=== PATIENT | male | born 1960 | race Caucasian/White ===

== ENCOUNTER 2018-12-11 06:33 | Day surgery (SDC) | payer BC ==
[~2018-12-11] VITALS: Ht 182.9 cm; Wt 120.4 kg
[2018-12-11] VITALS (8 sets, daily range): BP systolic 114–133; BP diastolic 64–85; PULSE 67–72; TEMP 98.2–98.4
[~2018-12-11 06:33] MED LIST: MOTRIN 600600 MG/TAB PO; TYLENOL 500MG500 MG PO
--- NOTE | 2018-12-11 09:30 | NUR ---
Resting and watches TV.
[2018-12-11] MEDS ORDERED: SYNTHROID0.125 MG/T PO (10:35)
[2018-12-11] MEDS ORDERED: PERCOCET 325 MG1 TA2 PO (13:12)
--- NOTE | 2018-12-11 13:45 | NUR ---
Patient returns to room 3 per cart from PACU and is awake and alert. Dressing clean and dry on the right axilla area and the right elbow area. IV fluids infusing and patient denies pain or nausea. Allowed to rest. Sipping on water and Sprite.
--- NOTE | 2018-12-11 14:00 | NUR ---
Room air sats 96%. Resting and sipping on water and Sprite.
--- NOTE | 2018-12-11 14:15 | NUR ---
Room air sats 92%. Continues to deny pain or nausea.
--- NOTE | 2018-12-11 14:30 | NUR ---
Eating toast. Continues to deny pain or nausea.
--- NOTE | 2018-12-11 14:45 | NUR ---
Resting and denies need for pain medication or nausea.
--- NOTE | 2018-12-11 15:15 | NUR ---
Assisted up to the bathroom and is able to void. Returns to room and dresses self. Dressing remains dry on the right axilla and right elbow area. Continues to deny need for pain medication. Tolerated toast and Sprite.
--- NOTE | 2018-12-11 15:35 | NUR ---
Given dismissal instructions and voices understanding of these. Provided script for Percocet and instructed to take pain medication with food and to avoid constipation with over the counter laxatives. IV discontinued and site is free of redness. Patient is dressed and ready for discharge.
--- NOTE | 2018-12-11 15:41 | NUR ---
Patient dismissed to home per private vehicle driven by spouse with instructions in hand. Taken to the front door per wheelchair by RN and assisted into vehicle.
== END 2018-12-11 15:41 | disposition home or self-care (01) ==
LOC: SDCO 06:33
DX: D22.61 Melanocytic nevi of right upper limb, including shoulder (principal); Z82.49 Family history of ischemic heart disease and other diseases of the circulatory system; Z80.8 Family history of malignant neoplasm of other organs or systems
CPT/HCPCS: A9541; J0690; J1100; J1885; J2250; J2405; J2704; J2795; J3010; J7120

== ENCOUNTER 2019-12-30 08:05 | Inpatient (IN) | payer BC ==
[2019-12-30] VITALS (672 sets, daily range): BP systolic 112–154; BP diastolic 66–107; PULSE 70–135; TEMP 97.5–98; O2SAT 82–100
[~2019-12-30] VITALS: Ht 182.9 cm; Wt 118.0 kg
[~2019-12-30 08:05] MED LIST changes: +PERCOCET 325 MG1 TA2 PO; +SYNTHROID0.125 MG/T PO
[2019-12-30] MEDS ORDERED: ELIQUIS 5MG PO (08:40)
[2019-12-30] MEDS ORDERED: TOPROL XL 50MG50 MG PO (08:41)
[2019-12-30] MEDS ORDERED: LIPITOR 10MG10 MG PO (08:41)
[2019-12-30 09:22] LABS: HEMATOCRIT 47.9 % (42.0-52.0); HEMOGLOBIN 16.5 g/dl (13.5-18.0); MEAN CELL VOLUME 89 fl (80.0-100.0); MEAN CORPUSCULAR HEMOGLOBIN 31 pg (27.0-31.0); MEAN CORPUSCULAR HGB CONC 34 g/dl (33.0-37.0); MEAN PLATELET VOLUME 9.4 fl (7.4-10.4); PLATELET COUNT 277 K/mm3 (130-400); RED BLOOD COUNT 5.41 M/mm3 (4.20-5.60); REDCELL DISTRIBUTION WIDTH-CV 11.6 % (11.5-14.5)
[2019-12-30 09:34] LABS: CALCIUM 8.9 mg/dL (8.4-10.2); CREATININE, serum 0.99 (0.66-1.25); POTASSIUM 4.3 mmol/L (3.4-5.0)
[2019-12-30 09:50] LABS: INR 1.2 (0.8-3.0); PROTHROMBIN TIME 13.6 SECONDS (9.7-12.8)
[2019-12-30 10:05] LABS: THYROID STIMULATING HORMONE 1.86 uIU/mL (0.465-4.680)
[2019-12-30 12:24] LABS: PARTIAL THROMBOPLASTIN TIME 40.8 SECONDS (26.0-37.0)
--- NOTE | 2019-12-30 19:00 | NUR ---
RECEIVED PT WITH HEPARIN INFUSING AT 2300 UNITS/HR OR 23 ML/HR.
--- NOTE | 2019-12-30 19:19 | NUR ---
report received from BONI Kang.
[2019-12-31] VITALS (1026 sets, daily range): BP systolic 100–128; BP diastolic 64–105; PULSE 17–77; TEMP 97.4–98.1; O2SAT 79–100
--- NOTE | 2019-12-31 00:51 | NUR ---
PT'S QTC AT 496, DR. NEWTON NOTIFIED AND ORDERED TIKOSYN TO BE REDUCED AT 250 MCG IN THE MORNING. ORDER CHANGED IN EMAR.
--- NOTE | 2019-12-31 07:15 | NUR ---
REPORT GIVEN TO BONI KRAMER.
[2019-12-31 07:55] LABS: BASO # 0.1 (0.0-0.2); BASO % 0.7 % (0.0-2.0); EOS # 0.2 (0.0-0.7); EOS % 2.4 % (0-4.0); GRAN # 3.4 (1.4-6.5); GRAN % 49.1 % (42.2-75.2); HEMATOCRIT 45.4 % (42.0-52.0); HEMOGLOBIN 15.4 g/dl (13.5-18.0); LYMPH # 2.5 (1.2-3.4); LYMPH % 36.5 % (20.0-51.0); MEAN CELL VOLUME 90 fl (80.0-100.0); MEAN CORPUSCULAR HEMOGLOBIN 31 pg (27.0-31.0); MEAN CORPUSCULAR HGB CONC 34 g/dl (33.0-37.0); MEAN PLATELET VOLUME 9.8 fl (7.4-10.4); MONO # 0.8 (0.1-0.6); MONO % 10.9 % (1.7-9.3); PLATELET COUNT 238 K/mm3 (130-400); RED BLOOD COUNT 5.05 M/mm3 (4.20-5.60); REDCELL DISTRIBUTION WIDTH-CV 11.7 % (11.5-14.5)
[2019-12-31 07:59] LABS: CALCIUM 8.5 mg/dL (8.4-10.2); CREATININE, serum 0.89 (0.66-1.25); MAGNESIUM 2.1 mg/dL (1.6-2.3); POTASSIUM 4.2 mmol/L (3.4-5.0)
--- NOTE | 2019-12-31 15:51 | NUR ---
Digital Associate met with the patient to complete initial intake. The patient lives alone in [place]. The patient denies DME use and is independent with ADLs. The patient's PCP is Dr. Baker and patient receives medications from [facility] with no difficulties. The patient does not have advanced directives in the EMR. The patient was interested in DPOA-HC form. Form provided. The patient is not but has a life partner, Jennifer Talavera ([phone]). He states he will designate Jennifer once he fills out the DPOA-HC paperwork, they have been together 13 years. The patient does have adult children. He did not provide their names. The patient plans to return home at discharge. There are no additional needs at this time.
--- NOTE | 2019-12-31 16:42 | NUR ---
Per Dr. Bridges current 250mcg of Tikosyn is to be continued.
[2019-12-31 18:11] LABS: INR 1.1 (0.8-3.0); PROTHROMBIN TIME 11.8 SECONDS (9.7-12.8)
[2020-01-01] VITALS (1200 sets, daily range): BP systolic 93–146; BP diastolic 72–100; PULSE 72–128; TEMP 97.5–98.4; O2SAT 86–100
--- NOTE | 2020-01-01 03:10 | NUR ---
PT'S HR JUST SUDDENLY JUMP T0 120-130'S. 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 I WOKE HIM UP AND HE VERBALIZED HE FEELS OKAY. EKG ORDERED. WHILE DOING EKG, PT FELT MILD CHEST TIGHTNESS IN LEFT SIDE AND STARTED SHIVERING. EKG SHOWED AFIB RVR WITH ABERRANCIES AND MODERATE ST DEPRESSION. THIS RESULT WAS CALLED IN TO DR. HESTER. OKAY WITH IT LONG HR DOES NOT GO ABOVE 150'S.
--- NOTE | 2020-01-01 05:09 | NUR ---
EKG THIS 0500 SHOWED ATRIAL FLUTTER WITH RVR, MARKED ST ELEVATION, ACUTE SC. THIS ALUMNI RELATIONS COORDINATOR CALLED DR. HESTER AND ASKED FOR PICTURE OF EKG, AND WAS SENT. PT VSS. PT COMPLAINS OF MILD CHEST PAIN THAT HE DESCRIBES IF HE PULLED A MUSCLE ON HIS CHEST. MD ORDERED TO GIVE SCHEDULED ASPIRIN AND START PT ON NITRO DRIP. MD CASTILLO WANTS HOSPITALIST TO BE NOTIFIED, DR. VELASCO MADE AWARE.
--- NOTE | 2020-01-01 06:28 | NUR ---
DUE TO EKG RESULTS COPY OF EKG GIVEN TO
[2020-01-01 06:30] LABS: BASO # 0.1 (0.0-0.2); BASO % 0.9 % (0.0-2.0); EOS # 0.1 (0.0-0.7); EOS % 1.7 % (0-4.0); GRAN # 4.1 (1.4-6.5); GRAN % 52.9 % (42.2-75.2); HEMATOCRIT 48.9 % (42.0-52.0); HEMOGLOBIN 16.7 g/dl (13.5-18.0); LYMPH # 2.6 (1.2-3.4); MEAN CELL VOLUME 89 fl (80.0-100.0); MEAN CORPUSCULAR HEMOGLOBIN 30 pg (27.0-31.0); MEAN CORPUSCULAR HGB CONC 34 g/dl (33.0-37.0); MEAN PLATELET VOLUME 9.5 fl (7.4-10.4); MONO # 0.8 (0.1-0.6); PLATELET COUNT 282 K/mm3 (130-400); REDCELL DISTRIBUTION WIDTH-CV 11.4 % (11.5-14.5)
[2020-01-01 06:39] LABS: CALCIUM 9.1 mg/dL (8.4-10.2); CREATININE, serum 0.93 (0.66-1.25); MAGNESIUM 2.1 mg/dL (1.6-2.3)
--- NOTE | 2020-01-01 07:35 | NUR ---
REPORT GIVEN TO BONI PANCHAL.
--- NOTE | 2020-01-01 10:42 | NUR ---
SEE MERGE DOCUMENTATION FOR MEDICATION ADMINISTRATION TIMES AND INTRA/POST PROCEDURE SEDATION ASSESSMENTS. PT CONCERNED ABOUT RIGHT RADIAL ACCESS WITH PRIOR LYMPH NODE REMOVAL TO RIGHT SIDE. RIGHT HAND KACIE TEST PERFORMED BY MD; OK FOR RIGHT RADIAL ACCESS PER MD.
--- NOTE | 2020-01-01 11:00 | NUR ---
Report received from dental laboratory worker, Tae RN at 1046. Patient arrived in IMCU via bed at 1100 (patient left unit at 0942). Patient alert and oriented, denies chest pain, insertion site CDI with TR band in place.
--- NOTE | 2020-01-01 18:14 | NUR ---
Patient converted to sinus rhythm at 1745. Confirmed with EKG.
--- NOTE | 2020-01-01 19:10 | NUR ---
Received report from BONI Kang.
--- NOTE | 2020-01-01 20:00 | NUR ---
Patient resting quietly in bed with eyes closed. Vitals within normal limits; patient denies any pain or discomfort. Right radial access site is covered by completely deflated TR band, with some very scant drainage noted. Site is soft to palpation and without hematoma formation. No further needs at this time. Will continue to monitor.
[2020-01-02] VITALS (603 sets, daily range): BP systolic 101–147; BP diastolic 78–102; PULSE 89–122; TEMP 97.4–99; O2SAT 85–100
[2020-01-02 07:07] LABS: BASO # 0.1 (0.0-0.2); BASO % 0.5 % (0.0-2.0); EOS # 0.2 (0.0-0.7); EOS % 1.6 % (0-4.0); GRAN # 5.3 (1.4-6.5); GRAN % 57.8 % (42.2-75.2); HEMATOCRIT 50.2 % (42.0-52.0); HEMOGLOBIN 17.3 g/dl (13.5-18.0); LYMPH # 2.8 (1.2-3.4); LYMPH % 30.1 % (20.0-51.0); MEAN CELL VOLUME 89 fl (80.0-100.0); MEAN CORPUSCULAR HEMOGLOBIN 31 pg (27.0-31.0); MEAN CORPUSCULAR HGB CONC 35 g/dl (33.0-37.0); MEAN PLATELET VOLUME 9.8 fl (7.4-10.4); MONO # 0.9 (0.1-0.6); MONO % 9.6 % (1.7-9.3); PLATELET COUNT 290 K/mm3 (130-400); RED BLOOD COUNT 5.66 M/mm3 (4.20-5.60); REDCELL DISTRIBUTION WIDTH-CV 11.6 % (11.5-14.5)
[2020-01-02 07:34] LABS: CALCIUM 9.2 mg/dL (8.4-10.2); CREATININE, serum 0.94 (0.66-1.25); MAGNESIUM 2.1 mg/dL (1.6-2.3)
[2020-01-02 07:43] LABS: POTASSIUM 4.3 mmol/L (3.4-5.0)
--- NOTE | 2020-01-02 17:36 | NUR ---
REPORT CALLED TO ANNA PLATA. ALL QUESTIONS ANSWERED. PT WHEELED UP TO ROOM 343 BY SOPHIE PLATA.
--- NOTE | 2020-01-02 18:00 | NUR ---
Received patient from ICU. No complaints. Telemetry intact. Ambulatory in room by self.
--- NOTE | 2020-01-02 21:10 | NUR ---
Pt. laying in bed at this time. Pt. is A&OX3, assessment complete. INT to lt. ac patent. Pt. denies pain or other needs.
[2020-01-03] VITALS (7 sets, daily range): BP systolic 94–121; BP diastolic 54–96; PULSE 117–122; TEMP 97.4–98.2
[2020-01-03 06:35] LABS: BASO # 0.1 (0.0-0.2); BASO % 0.5 % (0.0-2.0); EOS # 0.1 (0.0-0.7); EOS % 1.3 % (0-4.0); GRAN # 5.2 (1.4-6.5); GRAN % 57.1 % (42.2-75.2); HEMATOCRIT 50.2 % (42.0-52.0); HEMOGLOBIN 17.3 g/dl (13.5-18.0); LYMPH # 2.6 (1.2-3.4); LYMPH % 28.9 % (20.0-51.0); MEAN CELL VOLUME 89 fl (80.0-100.0); MEAN CORPUSCULAR HEMOGLOBIN 31 pg (27.0-31.0); MEAN CORPUSCULAR HGB CONC 35 g/dl (33.0-37.0); MEAN PLATELET VOLUME 9.7 fl (7.4-10.4); MONO # 1.1 (0.1-0.6); MONO % 11.8 % (1.7-9.3); PLATELET COUNT 274 K/mm3 (130-400); RED BLOOD COUNT 5.65 M/mm3 (4.20-5.60); REDCELL DISTRIBUTION WIDTH-CV 11.6 % (11.5-14.5)
[2020-01-03 06:48] LABS: CREATININE, serum 1.04 (0.66-1.25); MAGNESIUM 2.1 mg/dL (1.6-2.3)
--- NOTE | 2020-01-03 18:00 | NUR ---
No complaints except feeling a little fatigued. Has been tachycardic in 110's -120's this shift. Information on new medications given. Dr. Mcmillan answered his questions. Ambulatory in room and halls.
--- NOTE | 2020-01-03 20:00 | NUR ---
Pt. sitting up in bed at this time. Pt. is A&OX3, assessment complete. INT to lt. ac patent. Pt. denies pain or other needs, call light within reach.
[2020-01-04] VITALS (7 sets, daily range): BP systolic 101–133; BP diastolic 66–106; PULSE 112–122; TEMP 97.4–98.2
[2020-01-04 06:32] LABS: CALCIUM 9.3 mg/dL (8.4-10.2); CREATININE, serum 1.13 (0.66-1.25); MAGNESIUM 2.1 mg/dL (1.6-2.3); POTASSIUM 4.5 mmol/L (3.4-5.0)
[2020-01-04 06:43] LABS: BASO # 0.1 (0.0-0.2); BASO % 0.6 % (0.0-2.0); EOS # 0.2 (0.0-0.7); EOS % 1.7 % (0-4.0); GRAN # 5.3 (1.4-6.5); GRAN % 53.1 % (42.2-75.2); HEMOGLOBIN 17.9 g/dl (13.5-18.0); LYMPH # 3.1 (1.2-3.4); LYMPH % 31.7 % (20.0-51.0); MEAN CELL VOLUME 90 fl (80.0-100.0); MEAN CORPUSCULAR HEMOGLOBIN 30 pg (27.0-31.0); MEAN CORPUSCULAR HGB CONC 34 g/dl (33.0-37.0); MEAN PLATELET VOLUME 9.6 fl (7.4-10.4); MONO # 1.2 (0.1-0.6); MONO % 12.4 % (1.7-9.3); PLATELET COUNT 295 K/mm3 (130-400); RED BLOOD COUNT 5.91 M/mm3 (4.20-5.60); REDCELL DISTRIBUTION WIDTH-CV 11.6 % (11.5-14.5)
[2020-01-04 06:54] LABS: HEMATOCRIT 52.9 % (42.0-52.0)
--- NOTE | 2020-01-04 08:00 | NUR ---
Patient resting in bed eating in breakfast at this time. Patient is alert and oriented, answers questions appropriately. Patient denies pain or discomfort, states that he feels better today than he has, requests to take a shower today. Patient denies further pain or needs, call light within reach.
--- NOTE | 2020-01-04 11:22 | NUR ---
SW met with the patient to follow up and to review discharge plan. The patient reports that he is doing fine. He states that he is just frustrated that he is not improving and that he misses his family. He states that he has been bored and trying to pass the time by listening to music and watching shows on [employer]. SW provided support. The patient still plans to return home upon discharge. No additional needs at this time.
--- NOTE | 2020-01-04 18:27 | NUR ---
Patient showered independently today, telemetry remains in place per order. Patient denies pain or needs, call light within reach.
--- NOTE | 2020-01-04 20:00 | NUR ---
Patient in bed resting. Alert and oriented x 3. Assessment complete. Denies pain at this time. Tele in place. INT to Left AC noted. Denies further needs at this time.
[2020-01-05] VITALS (8 sets, daily range): BP systolic 93–125; BP diastolic 63–74; PULSE 64–118; TEMP 97.5–97.9
--- NOTE | 2020-01-05 05:44 | NUR ---
Patient has done well through the night. Minimal needs. Independent in room. Patient NPO since midnight. Denies pain or further needs at this time. Will report off to day shift.
[2020-01-05 05:58] LABS: CALCIUM 9.2 mg/dL (8.4-10.2); CREATININE, serum 1.08 (0.66-1.25); POTASSIUM 4.3 mmol/L (3.4-5.0)
--- NOTE | 2020-01-05 08:36 | NUR ---
PATIENT TAKEN FOR [facility] VIA BED. WILL WAIT FOR PATIENT ARRIVAL BACK TO ROOM 343.
--- NOTE | 2020-01-05 10:05 | NUR ---
PATIENT ARRIVED BACK TO ROOM 343 VIA BED FROM [facility]. PATIENT RESTING IN BED. POST-OP VSS. PATIENT DNEIES PAIN AT THIS TIME. WILL CONTINUE TO MONITOR.
--- NOTE | 2020-01-05 11:50 | NUR ---
POST-OP VSS AND COMPLETE. PATIENT EATING, DRINKING AND VOIDING WITHOUT DIFFICULTY. IV FLUIDS TO INT. NO NEEDS AT THIS TIME.
[2020-01-05] MEDS ORDERED: CORDARONE200 MG/TAB PO (11:56)
[2020-01-05] MEDS ORDERED: ENTRESTO 24 MG1 EACH PO (11:57)
[2020-01-05] MEDS ORDERED: COREG12.5 MG PO (11:57)
[2020-01-05] MEDS ORDERED: ALDACTONE 25MG25 M1 PO (11:58)
[2020-01-05] MEDS ORDERED: LASIX 20MG TABL20 MG PO (11:58)
--- NOTE | 2020-01-05 13:56 | NUR ---
INT DISCONTINUED PER PENDING DISCHARGE. TIP INTACT. PATIENT TOLERATED WELL. DISCHARGE INSTRUCTIONS REVIEWED WITH PATIENT. QUESTIONS SOUGHT AND ANSWERED. PATIENT PERSONAL BELONGING GATHERED. PATIENT TAKEN TO PERSONAL VEHICLE VIA WHEELCHAIR BY SURGICAL STAFF. PATIENT DISCHARGED.
== END 2020-01-05 13:56 | disposition home health service (06) | DRG 287 ==
LOC: COL.CAR 08:05 → SURG 10:56 → IMCU 10:56 → SURG 01-02 17:30
PROVIDERS: Internal Medicine Adult Congenital Heart Disease; Internal Medicine Cardiovascular Disease; ADMIT Internal Medicine Cardiovascular Disease
PROC: 5A2204Z Restoration of Cardiac Rhythm, Single (ICD-10-PCS; principal; 2019-12-30)
PROC: 4A023N7 Measurement of Cardiac Sampling and Pressure, Left Heart, Percutaneous Approach (ICD-10-PCS; 2020-01-01)
PROC: B2111ZZ Fluoroscopy of Multiple Coronary Arteries using Low Osmolar Contrast (ICD-10-PCS; 2020-01-01)
DX: I48.3 Typical atrial flutter (principal); F41.9 Anxiety disorder, unspecified; E03.9 Hypothyroidism, unspecified; E78.2 Mixed hyperlipidemia; I42.8 Other cardiomyopathies
CPT/HCPCS: C1769; J0282; J1644; J2250; J2704; J3010; J7060; Q9967

== ENCOUNTER 2020-01-18 11:46 | Day surgery (SDC) | payer BC ==
[2020-01-18] VITALS (7 sets, daily range): BP systolic 110–132; BP diastolic 73–111; PULSE 56–90; TEMP 98.4
[~2020-01-18] VITALS: Ht 183 cm; Wt 123.0 kg
[~2020-01-18 11:46] MED LIST changes: +ALDACTONE 25MG25 M1 PO; +CORDARONE200 MG/TAB PO; +COREG12.5 MG PO; +ELIQUIS 5MG PO; +ENTRESTO 24 MG1 EACH PO; +LASIX 20MG TABL20 MG PO; +LIPITOR 10MG10 MG PO; +TOPROL XL 50MG50 MG PO
[2020-01-18] MEDS ORDERED: PACERONE400 MG PO ×2 (12:14→14:13)
[2020-01-18] MEDS ORDERED: COREG12.5 MG PO (12:17)
[2020-01-18] MEDS ORDERED: LASIX 20MG TABL20 MG PO (12:18)
[2020-01-18] MEDS ORDERED: ATIVAN 0.50.5 MG/TAB PO (12:19)
[2020-01-18 12:44] LABS: HEMATOCRIT 44.8 % (42.0-52.0); HEMOGLOBIN 15.4 g/dl (13.5-18.0); MEAN CELL VOLUME 91 fl (80.0-100.0); MEAN CORPUSCULAR HEMOGLOBIN 31 pg (27.0-31.0); MEAN CORPUSCULAR HGB CONC 34 g/dl (33.0-37.0); MEAN PLATELET VOLUME 9.5 fl (7.4-10.4); PLATELET COUNT 267 K/mm3 (130-400); RED BLOOD COUNT 4.94 M/mm3 (4.20-5.60); REDCELL DISTRIBUTION WIDTH-CV 11.2 % (11.5-14.5)
[2020-01-18 12:52] LABS: INR 1.3 (0.8-3.0)
[2020-01-18 12:55] LABS: PARTIAL THROMBOPLASTIN TIME 40.1 SECONDS (26.0-37.0)
[2020-01-18 13:03] LABS: CALCIUM 8.8 mg/dL (8.4-10.2); CREATININE, serum 0.98 (0.66-1.25); MAGNESIUM 2.1 mg/dL (1.6-2.3); POTASSIUM 4.8 mmol/L (3.4-5.0)
[2020-01-18 13:37] LABS: THYROID STIMULATING HORMONE 4.41 uIU/mL (0.465-4.680)
--- NOTE | 2020-01-18 15:00 | NUR ---
INT discontinued intact. Discharge instructions given.
--- NOTE | 2020-01-18 15:24 | NUR ---
Transferred to private car by trisha
== END 2020-01-18 15:25 | disposition home or self-care (01) ==
LOC: COL.CAR 11:46
PROVIDERS: Internal Medicine Cardiovascular Disease
DX: I48.91 Unspecified atrial fibrillation (principal); I48.92 Unspecified atrial flutter; I42.8 Other cardiomyopathies; E07.9 Disorder of thyroid, unspecified; G25.81 Restless legs syndrome; I08.1 Rheumatic disorders of both mitral and tricuspid valves; F41.9 Anxiety disorder, unspecified; R12 Heartburn; Z79.01 Long term (current) use of anticoagulants; Z79.899 Other long term (current) drug therapy; Z83.6 Family history of other diseases of the respiratory system; Z85.820 Personal history of malignant melanoma of skin
CPT/HCPCS: J2704

== ENCOUNTER 2021-11-27 16:00 | Outpatient (RCR) | payer BC ==
[~2021-11-27 16:00] MED LIST changes: +ATIVAN 0.50.5 MG/TAB PO; +PACERONE400 MG PO
== END 2021-12-14 | disposition still patient (30) ==
LOC: PT.GENESIS
DX: M48.02 Spinal stenosis, cervical region (principal); M50.30 Other cervical disc degeneration, unspecified cervical region; M25.78 Osteophyte, vertebrae; M43.16 Spondylolisthesis, lumbar region

== ENCOUNTER 2021-12-11 12:52 | Outpatient (RCR) | payer BC | END 2021-12-14 | disposition home or self-care (01) | LOC: WSOT | DX: M48.02 Spinal stenosis, cervical region (principal); M50.30 Other cervical disc degeneration, unspecified cervical region; M25.70 Osteophyte, unspecified joint ==

== ENCOUNTER → 2022-02-14 | Outpatient (RCR) | payer BC | LOC: PT.GENESIS | DX: M54.12 Radiculopathy, cervical region (principal); M54.16 Radiculopathy, lumbar region; M25.551 Pain in right hip; M48.02 Spinal stenosis, cervical region ==

== ENCOUNTER 2022-04-04 08:46 | Outpatient (RCR) | payer BC ==
[~2022-04-04 08:46] MED LIST changes: +BETAPACE 80MG80 MG PO; +COZAAR 25MG25 MG/TAB PO; +MOBIC15 MG PO; +TOPROL XL 25MG25 MG PO; +ULTRAM 50MG TAB50 MG PO
== END 2022-04-04 15:15 ==
LOC: PT.GENESIS 08:46
DX: M25.551 Pain in right hip (principal)

== ENCOUNTER 2022-04-13 14:16 | Outpatient (RCR) | payer BC | END 2022-04-16 | LOC: PT.GENESIS | DX: M25.551 Pain in right hip (principal) ==

== ENCOUNTER → 2022-04-13 | Outpatient (CLI) | payer BC | LOC: COL.RAD 13:04 → EUO 13:04 → MC.RAD 13:04 | DX: R60.0 Localized edema (principal); Z96.641 Presence of right artificial hip joint ==

== ENCOUNTER → 2022-07-31 | Outpatient (CLI) | payer BC | LOC: COL.RAD 08:21 | DX: M25.551 Pain in right hip (principal) | CPT/HCPCS: J3301; Q9967 ==

== ENCOUNTER 2024-03-27 08:24 | Day surgery (SDC) | payer BC ==
[~2024-03-27] VITALS: Ht 182.9 cm; Wt 122.6 kg
[~2024-03-27 08:24] MED LIST changes: +LR 1,000 ML IV SCH; +Ondansetron 4 MG/2 ML VIAL IV PRN
[2024-03-27] MEDS ORDERED: DESYREL 50MG50 MG PO (08:50)
[2024-03-27 10:30] VITALS: BP 133/74; PULSE 58
--- NOTE | 2024-03-27 10:30 | NUR ---
RETURNS TO ROOM 8 PER CART AND IS AWAKE AND ALERT. DENIES PAIN OR NAUSEA. IVF INFUSING.
[2024-03-27 10:40] VITALS: BP 137/71; PULSE 55
--- NOTE | 2024-03-27 10:40 | NUR ---
DR. GEE HERE AND TALKS WITH THE PATIENT. ALL QUESTIONS ANSWERED. DISCHARGE INSTRUCTIONS GIVEN AND VOICES UNDERSTANDING OF THESE.
--- NOTE | 2024-03-27 10:45 | NUR ---
IV DISCONTINUED AND PATIENT IS ABLE TO DRESS SELF. 1100 PATIENT DISCHARGED TO HOME DRIVEN BY SPOUSE AND TAKEN TO PRIVATE VEHICLE PER WHEELCHAIR AND ASSISTED INTO CAR WITH INSTRUCTIONS IN HAND.
[2024-03-27] MEDS ORDERED: LIPITOR 10MG10 MG (11:37)
[2024-03-27] MEDS ORDERED: WELLBUTRIN SR150 M1 PO (11:37)
[2024-03-27 11:42] VITALS: BP 122/100; PULSE 64; TEMP 97.2
== END 2024-03-27 11:00 | disposition home or self-care (01) ==
LOC: SDCO 08:24
DX: Z12.11 Encounter for screening for malignant neoplasm of colon (principal); D12.0 Benign neoplasm of cecum; Z85.828 Personal history of other malignant neoplasm of skin; Z79.01 Long term (current) use of anticoagulants
CPT/HCPCS: J2704; J7120